=== PATIENT | male | born 1995 | race African-American/Black ===

== ENCOUNTER 2020-09-06 13:54 | Emergency (ER) | payer OTHER, SELFPAY ==
[2020-09-06 14:06] VITALS: BP 115/60; PULSE 75; RESP 14; TEMP 37; O2SAT 100
--- NOTE | 2020-09-06 14:16 | ED.NAVMDI ---
HPI - Nausea/Vomiting/Diarrhea General Chief complaint: Nausea/Vomiting/Diarrhea Stated complaint: nausea diarehha Time Seen by Provider: 09/06/20 14:16 Source: patient and RN notes reviewed Mode of arrival: ambulatory Limitations: no limitations History of Present Illness HPI Narrative: 25-year-old male who [facility] with complaints of nausea and vomiting and diarrhea for the past 3 to 4 days. Patient states he ate a hamburger and about 2 hours after eating his stomach felt real heavy with bloating and then he started with having some nausea and diarrhea which has been intermittent with periods of vomiting. He reports he did have a small loose brown stool this morning. Patient states he did have nausea and vomiting at work today and was sent home about 10:00, denies any pain to his abdomen with no tenderness noted on palpation or any incidence of fevers. Patient states no evidence of blood in emesis or any noted in his stools. MD elicited complaint: nausea, vomiting, diarrhea and other (bloating) Onset (ago): day(s) (3-4 days) Description of vomiting: food contents Description of diarrhea: watery Associated nausea: Yes Associated abdominal pain: No Location of pain: other (bloating) Quality: other (bloating) Exacerbating factors: eating Relieving factors: none Context: possible food poisoning Associated symptoms: loss of appetite, nausea/vomiting, bloating and other (diarrhea) Treatment prior to arrival: other OTC medicine (type of stomach med) Related Data Allergies Allergy/AdvReac Type Severity Reaction Status Date / Time No Known Allergies Allergy Verified 09/06/20 14:13 Review of Systems Review of Systems: Narrative: CONSTITUTIONAL: Denies fever, chills, or sweats. EYES: Denies visual changes, redness, or discharge. ENT: Denies rhinorrhea, congestion, sore throat, or otalgia. CARDIOVASCULAR: Denies chest pain, palpitations, or edema. RESPIRATORY: Denies cough or dyspnea. GASTROINTESTINAL: Denies abdominal pain, positive for nausea, vomiting, or diarrhea. GENITOURINARY: Denies dysuria or hematuria. SKIN: Denies rash or itching. MUSCULOSKELETAL: Denies back pain, joint pain, or myalgia. NEUROLOGIC: Denies headache, numbness, or weakness. PSYCHIATRIC: Positive history of anxiety or depression. All systems reviewed & are unremarkable except as noted in HPI and below PMFSH Past Medical History Medical History (Updated 09/06/20 @ 15:21 by Aretha Wren NP) Bipolar 1 disorder Migraines Social History Social History (Updated 09/06/20 @ 15:22 by Aretha Wren NP) Smoking packs per day: 0.25 Smoking cigarettes per day: 5.0 Years smoked: 10 Smoking pack-years: 2.50 Smoking status: Current every day smoker Tobacco type: e-cigarettes/vaping Substance use type: marijuana Living arrangements: with family Gender identity (if verbalized by the patient): Male Comments At time of signature, agree with nursing past medical, surgical, social and family history. There is no relevant family history pertinent to the presenting complaint Exam Narrative: Exam Narrative: GENERAL: Well-appearing, well-nourished, and in no acute distress. HEAD: Normocephalic, atraumatic. EYES: PERRLA and EOMI. ENT: Nares clear, no rhinorrhea or epistaxis. Mucous membranes moist.TM's normal with good light reflex, throat pink with no lesions or exudates, no swollen tonsils noted. NECK: Supple. No lymph adenopathy CHEST: Clear to auscultation. No respiratory distress. SaO2 100% on room air HEART: Regular rate and rhythm. No murmur heard. Normal peripheral pulses. ABDOMEN: Soft, nontender to palpation, nondistended, normal active bowel sounds. Episodes of nausea and vomiting and diarrhea with no evidence of blood in emesis or stools, negative McBurney point tenderness EXTREMITIES: Normal range of motion. No edema. SKIN: Warm, dry, no rash. NEURO: No focal deficits. Alert and oriented x3. Course Vital Signs Vital
== END 2020-09-06 14:32 | disposition home or self-care (01) ==
PROVIDERS: Emergency Provider Registered Nurse
DX: K52.9 Noninfective gastroenteritis and colitis, unspecified (principal); F17.200 Nicotine dependence, unspecified, uncomplicated
CPT/HCPCS: 99213; G0463

== ENCOUNTER 2022-08-18 09:01 | Emergency (ER) | payer OTHER, SELFPAY ==
[2022-08-18 09:14] VITALS: BP 156/88; PULSE 83; RESP 16; TEMP 36.2; O2SAT 98
--- NOTE | 2022-08-18 10:37 | ED.URI ---
HPI - URI/Sore Throat General Chief Complaint: Upper Respiratory Infection Stated Complaint: nausea diarrhea sore throat Time Seen by Provider: 08/18/22 10:37 Source: patient, RN notes reviewed and old records reviewed Mode of arrival: ambulatory Limitations: no limitations History of Present Illness HPI Narrative: 27-year-old male who presents to [facility] with complaints of sore throat, slight headache,nausea, vomiting, and diarrhea since 1 hour after eating Thanksgiving dinner. 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 He reports that he has been exposed to flu and COVID working at the facility.Patient states that he has had 4 episodes of vomiting today and 6 diarrhea stools and has not had any acute abdominal pain just some cramping with stools. He has tried to eat a few bites today and he has drank some liquids last around 0900. MD elicited complaint: nasal congestion and other (vomiting and diarrhea,headache) Pain scale (0-10): 3 Treatments prior to arrival: other (TUMS) Related Data Allergies Allergy/AdvReac Type Severity Reaction Status Date / Time No Known Allergies Allergy Verified 08/18/22 09:58 Review of Systems Review of Systems: CONSTITUTIONAL: Denies fever, chills, or sweats. ENT: Reports rhinorrhea, congestion, sore throat, no otalgia. CARDIOVASCULAR: Denies chest pain, palpitations, or edema. RESPIRATORY: Denies cough or dyspnea. GASTROINTESTINAL: Denies any acute abdominal pain, positive for nausea, vomiting, diarrhea. GENITOURINARY: Denies dysuria or hematuria. SKIN: Denies rash or itching. MUSCULOSKELETAL: Denies back pain, joint pain, or myalgia. NEUROLOGIC: Positive for headache, no numbness, or weakness. All systems reviewed & are unremarkable except as noted in HPI and below PMFSH Past Medical History Medical History (Updated 08/19/22 @ 00:00 by Evelio Gaona) Bipolar 1 disorder Migraines Social History Social History Smoking packs per day: 0.25 Smoking cigarettes per day: 5.0 Years smoked: 10 Smoking pack-years: 2.50 Smoking status: Current every day smoker Tobacco type: e-cigarettes/vaping Substance use type: marijuana Gender identity (if verbalized by the patient): Male Comments At time of signature, agree with nursing past medical, surgical, social and family history. There is no relevant family history pertinent to the presenting complaint Exam Narrative: GENERAL: Well-appearing, well-nourished, and in no acute distress. HEAD: Normocephalic, atraumatic. EYES: PERRLA, conjunctivae clear, and EOMI. ENT: Nares clear some clear nasal drainage. Mucous membranes moist. Oropharynx without edema, erythema, or lesions. Tonsils not enlarged and without exudate. NECK: Supple. No lymphadenopathy CHEST: Speaks in full sentences. No respiratory distress. HEART: Regular rate and rhythm. ABDOMEN: Soft, flat, nondistended. No guarding, rebound tenderness, or rigid. No pulsatilla masses. Bowel sounds present in all four quadrants. No organomegaly. Negative Frias?s sign. No periumbilical tenderness.negative for McBurney point tenderness, No Supra public tenderness or distension. Good femoral pulses bilaterally. No hernia noted. No scars or surface trauma. SKIN: Warm, dry, no rash. NEURO:? Alert and oriented x3. PSYCH: Normal mood and affect Course Course Emergency Course: Patient is aware of diagnosis, understands and agrees to treatment plan.? Anticipatory guidance given.? Patient agrees to follow-up as directed and is aware of reasons to seek care at the emergency department. Portions of this record may have been created with voice recognition software Level of Care: Express Care Visit Vital Signs Vital signs: Vital Signs Temperature 36.2 C L 08/18/22 09:14 Pulse Rate 83 08/18/22 09:14 Respiratory Rate 16 08/18/22 09:14 Blood Pressure 156/88 H 08/18/22 09
== END 2022-08-18 10:53 | disposition home or self-care (01) ==
PROVIDERS: Emergency Provider Registered Nurse
DX: K52.9 Noninfective gastroenteritis and colitis, unspecified (principal); Z20.822 Contact with and (suspected) exposure to COVID-19; F17.290 Nicotine dependence, other tobacco product, uncomplicated; F12.90 Cannabis use, unspecified, uncomplicated
CPT/HCPCS: 87426; 87804; 99213; C9803; G0463

== ENCOUNTER 2023-08-10 16:07 | Emergency (ER) | payer OTHER, SELFPAY ==
[2023-08-10 16:13] VITALS: BP 143/79; PULSE 79; RESP 14; TEMP 36.6; O2SAT 98
--- NOTE | 2023-08-10 16:22 | ED.NAVMDI ---
HPI - Nausea/Vomiting/Diarrhea General Chief complaint: Nausea/Vomiting/Diarrhea Stated complaint: nausea / aches Time Seen by Provider: 08/10/23 16:26 Source: patient and RN notes reviewed Mode of arrival: ambulatory Limitations: no limitations History of Present Illness HPI Narrative: 28-year-old male presents with concern for nausea, vomiting, body aches. Reports symptoms started yesterday. He vomited twice yesterday and once today. He has not vomited since this morning. He denies fever, sore throat, runny nose, stuffy nose, cough. He reports he is taking Tylenol. He denies abdominal pain MD elicited complaint: nausea and vomiting Related Data Allergies Allergy/AdvReac Type Severity Reaction Status Date / Time No Known Allergies Allergy Verified 08/10/23 16:21 Review of Systems Review of Systems: CONSTITUTIONAL: Reports malaise. Denies chills, sweats, or fever. ENT: Denies rhinorrhea, congestion, sinus pain, otalgia or sore throat. CARDIOVASCULAR: Denies chest pain, palpitations, or edema. RESPIRATORY: Denies cough or dyspnea. GASTROINTESTINAL: Denies abdominal pain, diarrhea, bloody, or mucous stools. Reports nausea vomiting GENITOURINARY: Denies dysuria or hematuria. MUSCULOSKELETAL: Reports myalgia. NEUROLOGIC: Denies headache. All systems reviewed & are unremarkable except as noted in HPI and below PMFSH Past Medical History Medical History (Updated 08/10/23 @ 16:33 by Yolanda Manning NP) Bipolar 1 disorder Migraines Social History Social History Smoking packs per day: 0.25 Smoking cigarettes per day: 5.0 Years smoked: 10 Smoking pack-years: 2.50 Smoking status: Current every day smoker Tobacco type: e-cigarettes/vaping Substance use type: marijuana Living arrangements: with family Gender identity (if verbalized by the patient): Male Comments At time of signature, agree with nursing past medical, surgical, social and family history. There is no relevant family history pertinent to the presenting complaint Exam Narrative: GENERAL: Well-appearing, well-nourished, and in no acute distress. HEAD: Normocephalic, atraumatic. EYES: PERRLA, conjunctivae clear, and EOMI. ENT: Nares clear, turbinates pink, no rhinorrhea or epistaxis. Mucous membranes moist. Oropharynx without edema, erythema, or lesions. Tonsils not enlarged and without exudate. NECK: Supple. No lymphadenopathy CHEST: Speaks in full sentences. No respiratory distress. HEART: Regular rate and rhythm. ABDOMEN: Soft, round, nondistended, nontender. No guarding, rebound tenderness, or rigidity. No pulsatile masses. Bowel sounds present in all four quadrants. SKIN: Warm, dry, no rash. NEURO: Alert and oriented x3. PSYCH: Normal mood and affect Course Course Emergency Course: Patient is aware of diagnosis, understands and agrees to treatment plan. Anticipatory guidance given. Patient agrees to follow-up as directed and is aware of reasons to seek care at the emergency department. Portions of this record may have been created with voice recognition software Level of Care: Express Care Visit Vital Signs Vital signs: Vital Signs Temperature 97.8 F 08/10/23 16:13 Pulse Rate 79 08/10/23 16:13 Respiratory Rate 14 08/10/23 16:13 Blood Pressure 143/79 H 08/10/23 16:13 Pulse Oximetry 98 08/10/23 16:13 Oxygen Delivery Room Air 08/10/23 16:13 Temperature 97.8 F 08/10/23 16:13 Pulse Rate 79 08/10/23 16:13 Respiratory Rate 14 08/10/23 16:13 Blood Pressure 143/79 H 08/10/23 16:13 Pulse Oximetry 98 08/10/23 16:13 Oxygen Delivery Room Air 08/10/23 16:13 Reviewed. MDM - Nausea/Vomiting/Diarrhea MDM Narrative Medical decision making narrative: Differential diagnosis considered: Acute abdomen, gastroenteritis, banuelos virus, strep pharyngitis, allergic rhinitis, upper respiratory tract infection, sinusitis, rhinosinu
[2023-08-10 16:23] VITALS: BP 143/79; PULSE 79; RESP 14; TEMP 36.6; O2SAT 98
== END 2023-08-10 16:38 | disposition home or self-care (01) ==
PROVIDERS: Emergency Provider Nurse Practitioner
DX: R11.2 Nausea with vomiting, unspecified (principal); F17.290 Nicotine dependence, other tobacco product, uncomplicated; F12.90 Cannabis use, unspecified, uncomplicated
CPT/HCPCS: 99213; G0463

== ENCOUNTER 2024-10-22 08:38 | Emergency (ER) | payer OTHER, SELFPAY ==
[2024-10-22 08:48] VITALS: BP 121/68; PULSE 72; RESP 20; TEMP 36.8; O2SAT 98
--- OUTSIDE RECORDS SUMMARY | 2024-10-22 09:01 | XMS_ITS | Clinical Summary ---
Author Organization [facility] Address [address] [place] [address] Phone Care Team Providers Care Customer Service Sales Associate Name Role Phone Provider, None Primary Care Provider Unavailabl e Allergies No known active allergies Medications ondansetron (ZOFRAN) 4 MG Tablet Take 1-2 Tablets by mouth every 8 hours as needed for Nausea - 1st line. 10 Tablet 1 Active Additional Information Patient not taking.Reported on 12/04/2022 omeprazole (PriLOSEC) 20 MG CAPSULE DELAYED RELEASE TAKE 1 CAPSULE BY MOUTH EVERY DAY 30 Capsule 3 Active HYDROcodone-susan taminophen (NORCO) 5-325 MG TabletIndicatio ns:Dental caries Take 1 Tablet by mouth every 4 hours as needed for Moderate or more severe pain. 5 Tablet 3 Active ibuprofen (MOTRIN) 200 MG Tablet Take 4 Tablets by mouth every 8 hours as needed for Mild or more severe pain. 120 Tablet 3 Active Active Problems No known active problems Social History Tobacco Use Types Packs/Day Years Used Date Smoking Tobacco: Every Day Cigarettes Smokeless Tobacco: Never Tobacco Cessation:Ready to Q uit: Not Asked; Counseling Given: Not Answered Alcohol Use Standard Drinks/Week Comments Yes 0 (1 standard drink = 0.6 oz pur e alcohol) Sex and Gender Information Value Date Recorded Sex Assigned at Not on file Legal Sex Male 3:52 PM CDT Gender Identity Not on file Sexual Orientation Not on file Last Filed Vital Signs Vital Sign Reading Time Taken Comments Blood Pressure 123/72 03/30/2023 2:50 AM CDT Pulse 77 03/30/2023 2:50 AM CDT Temperature 36.4 ??C (97.6 ??F) 03/30/2023 12:47 AM C DT Respiratory Rate 18 03/30/2023 2:50 AM CDT Oxygen Saturation 96% 03/30/2023 2:50 AM CDT Inhaled Oxygen Concentration - - Weight 106.6 kg (235 lb) 03/30/2023 12:47 AM CDT Height 185.4 cm (6' 1 ) 03/30/2023 12:47 AM CDT Body Mass Index 31 03/30/2023 12:47 AM CDT Plan of Treatment Health Maintenance Due Date Last Done Comments Hepatitis C Virus (HCV) Screening 1996 TdaP Immunization 1996 Hepatitis B Immunization (1 of 3 - 19+ 3-dose series) 2015 Pneumococcal Immunization Co mbined (1 of 2 - PCV) 2015 Influenza Immunization (#1) 2024 SARS-COV-2 Immunization ( - 2023- season) 2024 Respiratory Syncytial Virus (RSV) Immunization (Adult) (1 - 1-dose 75+ series) 2071 Meningococcal Immunization (ACWY) Aged Out No longer eligible based on patient's age to complete this topic Rotavirus Immunization Aged Out No lo nger eligible based on patient's age to complete this topic Insurance MEDICAID [place] Care Teams Customer Service Sales Associate Relationship Specialty Start Date End Date Provider, None [place] PCP - General 05/23/22
--- OUTSIDE RECORDS SUMMARY | 2024-10-22 09:01 | XMS_ITS | Clinical Summary ---
Author Organization [facility] Address [address] [place] [address] Care Team Providers Care Government Auditor Name Role Phone No, Physician Primary Care Provider [phone] Allergies No known active allergies Medications amoxicillin (AMOXIL) 875 mg tabletIndicatio ns:Upper Respiratory/CATHERINE NT Infection Take 1 tablet (875 mg total) by mouth 2 (two) times a day. 20 tablet 8 Active albuterol HFA (PROVENTIL HFA,VENTOLIN HFA,PROAIR HFA) 90 mcg/actuation inhaler Inhale 2 puffs every 4 (four) hours as needed for wheezing or shortness of breath 18 g 0 Active naproxen (NAPROSYN) 500 mg tablet Take 1 tablet (500 mg total) by mouth 2 (two) times a day with meals 14 tablet 0 Active ondansetron (ZOFRAN) 4 mg tablet Take 1 tablet (4 mg total) by mouth every 6 (six) hours 12 tablet 2 Active famotidine (PEPCID) 20 mg tablet Take 1 tablet (20 mg total) by mouth 2 (two) times a day 30 tablet [address] (PROTONIX) 40 mg EC tablet Take 1 tablet (40 mg total) by mouth daily 30 tablet 3 Active omeprazole (PriLOSEC) 20 mg capsule Take 1 tablet by mouth daily 3 Active Active Problems No known active problems Medical History Medical History Date Comments Gastritis Social History Tobacco Use Types Packs/Day Years Used Date Smoking Tobacco: Every Day Cigarettes Smokeless Tobacco: Never Alcohol Use Standard Drinks/Week Comments Yes 0 (1 standard drink = 0.6 oz pur e alcohol) Personal Safety Answer Date Recorded Getting School Help Needed Not on file 03/24 Sex and Gender Information Value Date Recorded Sex Assigned at Not on file 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 Gender Identity Not on file Sexual Orientation Not on file Obstetrics History Last Filed Vital Signs Vital Sign Reading Time Taken Comments Blood Pressure 119/70 03/18/2023 7:00 PM CDT Pulse 76 03/18/2023 7:00 PM CDT Temperature 37.2 ??C (98.9 ??F) 03/18/2023 12:29 PM C DT Respiratory Rate 19 03/18/2023 7:00 PM CDT Oxygen Saturation 100% 03/18/2023 7:00 PM CDT Inhaled Oxygen Concentration - - Weight 106.6 kg (235 lb) 03/18/2023 12:29 PM CDT Height 185.4 cm (6' 1 ) 01/06/2022 12:34 PM CDT Body Mass Index 31 01/06/2022 12:34 PM CDT Plan of Treatment Health Maintenance Due Date Last Done Comments Depression Screening 1996 Hepatitis C Screening 1996 Pneumococcal vaccine <65 (1 of 2 - PCV) 2002 DTaP/Tdap/Td Vaccine (1 - Tdap) 2007 Varicella Vaccines (1 of 2 - 13+ 2-dose series) 2009 Hepatitis B Screening 2014 Regular Well Visit/Exam 18-64 2014 Influenza Vaccine (#1) 2024 HPV Vaccines Aged Out No longer eligi ble based on patient's age to complete this topic Insurance [facility] [place] [address] [facility] Care Teams Government Auditor Relationship Specialty Start Date End Date No, Physician PCP - General 01/06/22
--- OUTSIDE RECORDS SUMMARY | 2024-10-22 09:01 | XMS_ITS | Referral Summary ---
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
--- NOTE | 2024-10-22 09:07 | ED_ITS ---
HPI - URI/Sore Throat General Chief Complaint: Upper Respiratory Infection Stated Complaint: diarrhea/nause/throat Time Seen by Provider: 10/22/24 09:07 History of Present Illness HPI Narrative: 29-year-old male presented for complaint of sore throat, onset yesterday. Also reports nasal congestion headache, nausea and diarrhea. Onset last night. Denies cough, shortness of breath, wheezing or lethargy. Girlfriend is positive for COVID. Related Data Home Medications ?Medication ?Instructions ?Recorded ?Confirmed ?Last Taken ?Type No Home Medications 10/22/24 10/22/24 Unknown History Allergies Allergy/AdvReac Type Severity Reaction Status Date / Time No Known Allergies Allergy Verified 10/22/24 09:05 Review of Systems Review of Systems: per [facility] Past Medical History Medical History Bipolar 1 disorder Migraines Social History Social History Smoking packs per day: 0.25 Smoking cigarettes per day: 5.0 Years smoked: 10 Smoking pack-years: 2.50 Smoking status: Current every day smoker Tobacco type: e-cigarettes/vaping Substance use type: marijuana Living arrangements: with family Gender identity (if verbalized by the patient): Male Exam Narrative: GENERAL: Mildly Ill-appearing, no acute distress. EYES: conjunctivae clear ENT: Mucous membranes moist. LeftTM pearly lopez with normal light reflex; right TM erythematous, no purulent effusion noted. no tragal tenderness. Oropharynx erythematous without lesions. Tonsils enlarged and without exudate. No drooling, no hoarseness, no trismus, uvula midline. No tripod positioning, hot potato voice, or soft palate swelling. NECK: Supple. No lymphadenopathy CHEST: Clear to auscultation, breath sounds equal. No respiratory distress, speaks in full sentences. HEART: Regular rate and rhythm. No murmur heard. SKIN: Warm, dry, no rash. NEURO: Alert and oriented x3. Course Course Emergency Course: Patient is aware of diagnosis, understands and agrees to treatment plan. Anticipatory guidance given. Patient agrees to follow-up as directed and is aware of reasons to seek care at the emergency department. Portions of this record may have been created with voice recognition software Level of Care: Express Care Visit Vital Signs Vital signs: Vital Signs Temperature 98.3 F 10/22/24 08:48 Pulse Rate 72 10/22/24 08:48 Respiratory Rate 20 10/22/24 08:48 Blood Pressure 121/68 10/22/24 08:48 Pulse Oximetry 98 10/22/24 08:48 Oxygen Delivery Room Air 10/22/24 08:48 Temperature 98.3 F 10/22/24 08:48 Pulse Rate 72 10/22/24 08:48 Respiratory Rate 20 10/22/24 08:48 Blood Pressure 121/68 10/22/24 08:48 Pulse Oximetry 98 10/22/24 08:48 Oxygen Delivery Room Air 10/22/24 08:48 MDM - URI/Sore Throat MDM Narrative Medical decision making narrative: POS strep result reviewed with pt. negative flu and COVID. Advise supportive treatments. Patient is appropriate for outpatient treatment and follow-up. Differential Diagnosis Differential diagnosis: Likely upper respiratory infection, viral infection and pharyngitis Discharge Plan Discharge Clinical Impression: Strep pharyngitis Patient Disposition: Home, Self-Care Condition: Stable Instructions: Antibiotic Form, Strep Throat (ED) Additional Instructions: - Take the antibiotic as directed. Fever and sore throat typically resolve within one to three days. Most patients can return to work, school, or daycare after 12 to 24 hours of antibiotic therapy, provided you are fever free and otherwise well. -Eat and drink things that are easy to swallow, like soft foods, cool liquids, tea with honey, or popsicles . -Salt water gargles and/or may use topical anesthetic ( Chloraseptic spray) or lozenges to relieve dryness or throat pain -Alternate Tylenol and ibuprofen as needed for pain and fever as directed. -Frequent hand washing or hand buffing and sueding machine operator is one of the best ways to prevent spread of infection. Throw away the toothbrush after 24hours of antibiotic. Stay hydrated. Take small sips of fluid containing electrolytes frequently. Clear liquids (broth, jello, tea, sprite, pedialyte) [place] foods (bananas, rice, applesauce, toast, crackers) Avoid fatty, greasy, fried or spicy foods. Limit dairy until symptoms are improved. [id number] Imodium according to package directions for diarrhea Recommend probiotic such as align or lactobacillus to help with symptoms. Follow up with primary care provider in 3 days. Go to the ER for worsening symptoms or concerns Patient Language: Georgian Prescriptions: New amoxicillin 500 mg tablet 1,000 mg PO BID 7 Days Qty: 28 0RF ondansetron 4 mg tablet,disintegrating 4 mg PO Q8H PRN (Reason: nausea and vomiting) Qty: 5 0RF No Action No Home Medications Follow-up/Referrals: Chicho Kingsley MD [Primary Care Provider] - Stand Alone Forms: Work/School Release IP Time of Disposition: 09:18
[2024-10-22 09:23] LABS: EDCOVIDSCREEN Negative (Negative); EDINFLUASCREEN Negative (Negative); EDINFLUBSCREEN Negative (Negative); EDSTREPNEGPOS1 Positive (Negative)
== END 2024-10-22 09:18 | disposition home or self-care (01) ==
PROVIDERS: Emergency Provider Nurse Practitioner Family; PCP Emergency Medicine
DX: J02.0 Streptococcal pharyngitis (principal); F31.9 Bipolar disorder, unspecified; F17.290 Nicotine dependence, other tobacco product, uncomplicated; Z20.822 Contact with and (suspected) exposure to COVID-19
CPT/HCPCS: 87426; 87804; 87880; 99213; G0463

== ENCOUNTER 2025-09-07 15:51 | Emergency (ER) | payer SELFPAY ==
[2025-09-07 16:07] VITALS: BP 150/78; PULSE 73; RESP 20; TEMP 36.6; O2SAT 99
--- NOTE | 2025-09-07 16:23 | ED.URI ---
HPI - URI/Sore Throat General Chief Complaint: Upper Respiratory Infection Stated Complaint: Sore Throat/Nausea Time Seen by Provider: 09/07/25 16:24 Source: patient, RN notes reviewed and old records reviewed Mode of arrival: ambulatory Limitations: no limitations History of Present Illness HPI Narrative: 30 year old male who presents to [facility] care with complaints of sore throat and nausea for the past 2 days Patient reports that he was sent home from work today due to illness.Patient reports that he has had sore throat and nauseafor the past 2 days Patient has been taking Tylenol for his symptoms. MD elicited complaint: sore throat and other (nausea) Onset (ago): day(s) (2) Related Data Allergies Allergy/AdvReac Type Severity Reaction Status Date / Time No Known Allergies Allergy Verified 09/07/25 16:05 Review of Systems Review of Systems: CONSTITUTIONAL: Denies malaise, chills, sweats, or fever. EYES: Denies visual changes, redness, or discharge. ENT: Reports rhinorrhea, congestion, sinus pain, otalgia and+ sore throat. CARDIOVASCULAR: Denies chest pain, palpitations, or edema. RESPIRATORY: Reports cough.? Denies dyspnea. GASTROINTESTINAL: Denies abdominal pain, nausea, vomiting, diarrhea SKIN: Denies rash or itching. MUSCULOSKELETAL: Denies myalgia. NEUROLOGIC: Denies headache. All systems reviewed & are unremarkable except as noted in HPI and below PMFSH Past Medical History Medical History Strep pharyngitis Bipolar 1 disorder Migraines Social History Social History Smoking packs per day: 0.25 Smoking cigarettes per day: 5.0 Years smoked: 10 Smoking pack-years: 2.50 Smoking status: Current every day smoker Tobacco type: e-cigarettes/vaping Substance use type: marijuana Living arrangements: with family Gender identity (if verbalized by the patient): Male Comments At time of signature, agree with nursing past medical, surgical, social and family history. There is no relevant family history pertinent to the presenting complaint Exam Narrative: GENERAL:Ill-appearing, well-nourished, and in no acute distress. HEAD: Normocephalic EYES: PERRLA, conjunctivae clear ENT: Nares clear, turbinates edematous and erythematous, clear discharge. Mucous membranes moist. TM pearly lopez with dull light reflex bilaterally; no tragal tenderness. Oropharynx erythematous without lesions. Tonsils red and enlarged and without exudate, no drooling, no hoarseness, no trismus, uvula midline, post nasal drainage noted NECK: Supple. No lymphadenopathy CHEST: Clear to auscultation, breath sounds equal. No wheezing, rhonchi, rales, or stridor. No respiratory distress, speaks in full sentences.no cough SAO2 99% on room air HEART: Regular rate and rhythm. No murmur heard. SKIN: Warm, dry, no rash. NEURO: Alert and oriented x3. PSYCH: Normal mood and affect Course Course Level of Care: Express Care Visit Vital Signs Vital signs: Vital Signs Temperature 36.6 C 09/07/25 16:07 Pulse Rate 73 09/07/25 16:07 Respiratory Rate 20 09/07/25 16:07 Blood Pressure 150/78 H 09/07/25 16:07 Pulse Oximetry 99 09/07/25 16:07 Oxygen Delivery Room Air 09/07/25 16:07 Temperature 36.6 C 09/07/25 16:07 Pulse Rate 73 09/07/25 16:07 Respiratory Rate 20 09/07/25 16:07 Blood Pressure 150/78 H 09/07/25 16:07 Pulse Oximetry 99 09/07/25 16:07 Oxygen Delivery Room Air 09/07/25 16:07 reviewed [facility] Narrative Medical decision making narrative: Patient tested positive for group A strep pharyngitis will treat with oral antibiotic and Zofran for nausea. Patient is appropriate for oupatient care with symptom control with OTC medications such as Tylenol or Ibuprofen for any pain or fevers. Anticipatory guidance with reasons to seek care in ED reviewed with patient with understanding voiced Differential Diagnosis Differential Diagnosis: Differential diagnostic considerations for upper respiratory infection include upper respiratory infection, croup, otitis media, sinusitis, viral infection, bronchitis, influenza, pharyngitis, strep, uvulitis.? Lab Data [facility] Lab Attestation statement: I personally reviewed the patient's lab results. Lab results narrative: Influenza A&B negative, COVID antigen negative, strep screen positive Labs: Lab Results 09/07/25 09/07/25 Range/Units 16:38 16:39 POC Influenza A Ag Negative (Negative) POC Influenza B Ag Negative (Negative) POC SARS CoV-2 Ag Negative (Negative) POC Grp A Strep Screen Positive (Negative) reviewed Critical Care Time Critical Care Time Critical Care Time: No Discharge Plan Discharge Clinical Impression: Acute streptococcal pharyngitis Patient Disposition: Home Condition: Stable Instructions: Antibiotic Form, Strep Throat (ED) Additional Instructions: You tested positive for Group A strep . Take the entire course of antibiotics. Throw away your current toothbrush and begin using a new toothbrush in 48 hours in order to prevent re-infection. Sanitize all reusable water bottles . Do not share items with others. Salt water gargles may alleviate some of the throat discomfort. You can take Tylenol or ibuprofen per the package instructions for pain/fever. Zofran for any nausea or vomiting If your symptoms persist, change or worsen significantly before you can contact your personal physician then please, without delay, go to the emergency department for further evaluation. Follow-up with PCP in 7-10 days or sooner if needed Follow up with PCP soon in regards to your blood pressure which is elevated above threshold for referral. Blood pressure above 120/80 may indicate pre-hypertension. 150/78 Patient Language: Portuguese Prescriptions: New amoxicillin 500 mg capsule 1,000 mg PO Q12H Qty: 40 0RF ondansetron 4 mg tablet,disintegrating 4 mg PO Q6H PRN (Reason: nausea and vomiting) Qty: 20 0RF Rx Instructions: whatever preparation is covered by insurance Follow-up/Referrals: PHYSICIAN,UTILITY LINEMAN [Primary Care Provider, Internal Medicine] Stand Alone Forms: Work/School Release IP Time of Disposition: 16:32 [place] Coma Scale Eyes: Open Verbal: Oriented and Alert Motor: Follows Commands [place]an Coma Total Score: 15
[2025-09-07 17:01] LABS: EDCOVIDSCREEN Negative (Negative); EDINFLUASCREEN Negative (Negative); EDINFLUBSCREEN Negative (Negative)
[2025-09-07 17:01] LABS: EDSTREPNEGPOS1 Positive (Negative)
--- OUTSIDE RECORDS SUMMARY | 2025-09-07 17:57 | XMS_ITS | Clinical Summary ---
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 Role Phone No, Physician Primary Care Provider [phone] Allergies No known active allergies Medications amoxicillin [...] Active Active Problems No known active problems Encounters Date Type Department Care Team Description 08/04/2025 1:50 AM SEAT INSTALLER - 08/04/2025 4:45 AM SEAT INSTALLER Emergency [facility] Emergency Department [address] [place] [address] Isaias Hooper MD Cannabis abuse, uncomplicated (Primary Dx) Discharge Disposition: Discharge to home or self care from Last 3 Months Medical History Medical History Date Comments Gastritis Social History Tobacco Use Types Packs/Day Years Used Date Smoking Tobacco: Every Day Cigarettes Smokeless Tobacco: Never Alcohol Use Standard Drinks/Week Comments Yes 0 (1 standard drink = 0.6 oz pur e alcohol) Personal Safety Answer Date Recorded Have you ever been in or are you currently in a harmful physical or emotional relationship or is someone making you feel afraid or unsafe? Denies 08/04/2025 Sex and Gender Information Value Date Recorded Sex Assigned at Not on file Legal Sex Male 1:38 PM SEAT INSTALLER Gender Identity Not on file Sexual Orientation Not on file Last Filed Vital Signs Vital Sign Reading Time Taken Comments Blood Pressure 137/73 08/04/2025 4:00 AM SEAT INSTALLER Pulse 69 08/04/2025 4:37 AM SEAT INSTALLER Temperature 37.2 C (99 F) 08/04/2025 1:48 AM SEAT INSTALLER Respiratory Rate 18 08/04/2025 1:48 AM SEAT INSTALLER Oxygen Saturation 94% 08/04/2025 4:37 AM SEAT INSTALLER Inhaled Oxygen Concentration - - Weight 133.8 kg (295 lb) 08/04/2025 1:46 AM SEAT INSTALLER Height 185.4 cm (6' 1) 08/04/2025 1:46 AM SEAT INSTALLER Body Mass Index 38.92 08/04/2025 1:46 AM SEAT INSTALLER Plan of Treatment Health Maintenance Due Date Last Done Comments Depression Screening 1996 Hepatitis C Screening 1996 DTaP/Tdap/Td Vaccine (1 - Tdap) 2007 Varicella Vaccines (1 of 2 - 13+ 2-dose series) 2008 Hepatitis B Screening 2014 Regular Well Visit/Exam 18-64 2014 Pneumococcal vaccine <65 (1 of 2 - PCV) 2015 HPV Vaccines (1 - 3-dose SCDM series) 2023 Influenza Vaccine (#1) 2025 Procedures Procedure Name Priority Date/Time Associated Diagnosis Comments EGFR STAT 08/04/2025 3:03 AM SEAT INSTALLER URINALYSIS, MICROSCOPIC ONLY STAT 08/04/2025 3:03 AM SEAT INSTALLER DIFFERENTIAL AUTO STAT 08/04/2025 3:0 3 AM SEAT INSTALLER DRUGS OF ABUSE SCREEN, URINE WITHOUT CONFIRMATION STAT 08/04/2025 3:03 AM SEAT INSTALLER CBC WITH AUTO DIFFERENTIAL STAT 08/04/2025 3:03 AM SEAT INSTALLER COMPREHENSIVE METABOLIC PANEL STAT 08/04/2025 3:03 AM SEAT INSTALLER URINALYSIS AND REFLEX TO MICROSCOPIC AND CULTURE STAT 08/04/2025 3:03 AM SEAT INSTALLER ECG 12-LEAD STAT 08/04/2025 2:51 AM SEAT INSTALLER from Last 3 Months Results * eGFR (08/04/2025 3:03 AM SEAT INSTALLER) eGFR >90 >=60 mL/min/1. 73 m2 Comment: Interpretive Data Reference Interval Normal >/= 90 mL/min/1.73m2 Mildly decreased* 60 - 89 mL/min/1.73m2 Mildly to moderately decreased 45 - 59 mL/min/1.73m2 Moderately to severely decreased 30 - 44 mL/min/1.73m2 Severely decreased 15 - 29 mL/min/1.73m2 Kidney Failure < 15 mL/min/1.73m2 *Relative to young adult level Estimated glomerular filtration rate is determined by the 2020 CKD-EPI equation recommended by the National Kidney Foundation (A Unifying Approach to GFR Estimation: Recommendations of the NKF-ASK Task Force on Reassessing the Inclusion of Race in Diagnosing Kidney Disease, JASN 202). The CKD-EPI equation should not be used for patients with unstable renal function and has not been validated in children and those over 70. Current interpretive data was last reviewed 2021. Blood 08/04/2025 3:03 AM SEAT INSTALLER 08/04/2025 3:36 AM SEAT INSTALLER Isaias Hooper MD LAB BLOOD ORDERABLES Final R esult [facility] ([place]) 1 [facility] Department [place] [address] * (ABNORMAL) Differential, auto (08/04/2025 3:03 AM SEAT INSTALLER) Neutrophil abs 6.97(H) 1.50 - 6.50 K/cumm Imm gran abs 0.08 0.00 - 0.10 K/cumm [facility] ([place]) Lymphocyte abs 1.65 0.80 - 3.30 K/cumm [facility] ([place]) Monocyte abs 0.53 0.20 - 0.80 K/cumm [facility] ([place]) Eosinophil abs 0.09 0.00 - 0.50 K/cumm [facility] ([place]) Basophil abs 0.05 0.00 - 0.10 K/cumm [facility] ([place]) Neutrophil pct 74.3 % [facility] ([place]) Comment: Interpretive Data Percent cell count reference ranges are not reported, since discordance with absolute values may lead to misinterpretation of CBC data. Current Interpretive Data was last revised on 2017. Imm gran pct 0.9 % [facility] ([place]) Comment: Interpretive Data Percent cell count reference ranges are not reported, since discordance with absolute values may lead to misinterpretation of CBC data. Current Interpretive Data was last revised on 2017. Lymphocyte pct 17.6 % [facility] ([place]) Comment: Interpretive Data Percent cell count reference ranges are not reported, since discordance with absolute values may lead to misinterpretation of CBC data. Current Interpretive Data was last revised on 2017. Monocyte pct 5.7 % [facility] ([place]) Comment: Interpretive Data Percent cell count reference ranges are not reported, since discordance with absolute values may lead to misinterpretation of CBC data. Current Interpretive Data was last revised on 2017. Eosinophil pct 1.0 % [facility] ([place]) Comment: Interpretive Data Percent cell count reference ranges are not reported, since discordance with absolute values may lead to misinterpretation of CBC data. Current Interpretive Data was last revised on 2017. Basophil pct 0.5 % [facility] ([place]) Comment: Interpretive Data Percent cell count reference ranges are not reported, since discordance with absolute values may lead to misinterpretation of CBC data. Current Interpretive Data was last revised on 2017. Blood 08/04/2025 3:03 AM SEAT INSTALLER 08/04/2025 3:36 AM SEAT INSTALLER Isaias Hooper MD LAB BLOOD ORDERABLES Final R esult [facility] ([place]) 1 [facility] Department [place] [address] * (ABNORMAL) Urinalysis reflex to microscopic and culture Urine (08/04/2025 3:03 AM SEAT INSTALLER) Color, ur Yellow Yellow Clarity, ur Clear Clear [facility] ([place]) Specific gravity, ur 1.028 1.003 - 1.030 [facility] ([place]) pH, urine 5.5 [facility] ([place]) Comment: Interpretive Data U rine pH is affected by diet, medications, systemic acid-base disturbances, and renal tubular function. pH may affect urinary stone formation. For example, urine pH below 6.0 may help reduce the tendency for calcium phosphate stones and pH greater than 6.0 may reduce the tendency for uric acid stone formation. Source: [facility] [email or web address] Current Interpretive Data was last revised on 2017 Protein, ur ql 1+(A) Negative [facility] ([place]) Glucose, ur ql Negative Negative [facility] ([place]) Ketones, ur Negative Negative [facility] ([place]) Bilirubin, ur Negative Negative [facility] ([place]) Blood, ur 1+(A) Negative [facility] ([place]) Urobilinogen, ur <2.0 <2.0 mg/dL [facility] ([place]) Nitrite, ur Negative Negative [facility] ([place]) Leukocyte esterase, ur Negative Negative [facility] ([place]) UA reflex comment Reflex to microscopic UA will be performed. [facility] ([place]) Urine 08/04/2025 3:03 AM SEAT INSTALLER 08/04/2025 3:36 AM SEAT INSTALLER Isaias Hooper MD LAB MICROBIOLOGY - GENERAL O RDERABLES Final Result [facility] ([place]) 1 [facility] Department [place] [address] * CBC with auto differential (08/04/2025 3:03 AM SEAT INSTALLER) WBC 9.37 3.80 - 9.90 K/cumm Hgb 13.0 13.0 - 17.5 g/dL [facility] ([place]) Hct 40.1 38.9 - 50.3 % [facility] ([place]) Plt 349 150 - 400 K/cumm [facility] ([place]) MPV 9.4 9.1 - 12.3 fL [facility] ([place]) RBC 4.80 4.30 - 5.80 M/cumm [facility] ([place]) MCV 83.5 81.3 - 96.4 fL [facility] ([place]) MCH 27.1 27.1 - 33.3 pg [facility] ([place]) MCHC 32.4 32.3 - 35.7 g/dL [facility] ([place]) RDW CV 12.2 11.1 - 14.9 % [facility] ([place]) RDW SD 37.1 35.7 - 48.1 fL [facility] ([place]) NRBC abs 0.00 0.00 - 0.01 K/cumm [facility] ([place]) Blood 08/04/2025 3:03 AM SEAT INSTALLER 08/04/2025 3:36 AM SEAT INSTALLER Isaias Hooper MD LAB BLOOD ORDERABLES Final R esult [facility] ([place]) 1 [facility] Department [place] [address] * (ABNORMAL) Drugs of Abuse Screen, Urine without Confirmation (08/04/2025 3:03 AM SEAT INSTALLER) Pathologist [facility] Amphetamine, ur Not Detected CutOff 500ng/mL Comment: Interpretive Data - Amphetamines: Samples containing greater than 500 ng/mL d-methamphetamine or other cross-reacting amphetamine compounds are reported as positive. Amphetamine immunoassays are subject to significant false positive rates due to cross-reactivity of non-amphetamine drugs. Confirmatory testing required for definitive results. Current Interpretive Data was last reviewed 2023. Barbiturates, ur Not Detected CutOff 200ng/mL [facility] ([place]) Comment: Interpretive Data - Barbiturates: Samples containing greater than 200 ng/mL secobarbital or other cross-reacting barbiturate compounds are reported as positive. False positive and false negative results are possible. Confirmatory testing required for definitive results. Current Interpretive Data was last reviewed 2023. Benzodiazepines, ur Not Detected CutOff 100ng/mL [facility] ([place]) Comment: Interpretive Data - Benzodiazepines: Samples containing greater than 100 ng/mL nordiazepam or other cross-reacting compounds are reported as positive. False positive and false negative results are possible. Confirmatory testing required for definitive results. Current Interpretive Data was last reviewed 2023. Cannabinoids, ur Screen Positive, presumptive (A) CutOff 50 ng/mL [facility] ([place]) Comment: Interpretive Data - Cannabinoids: Samples containing greater than 50 ng/mL delta-9 THC -COOH or other cross- reacting compounds are reported as positive. False positive and false negative results are possible. Confirmatory testing required for definitive results. Current Interpretive Data was last reviewed 2023. Cocaine, ur Not Detected CutOff 150ng/mL [facility] ([place]) Comment: Interpretive Data - Cocaine: Samples containing greater than 150 ng/mL benzoylecgonine or other cross- reacting compounds are reported as positive. False positive and false negative results are possible. Confirmatory testing required for definitive results. Current Interpretive Data was last reviewed 2023. Fentanyl, Ur Not Detected CutOff 5 ng/mL [facility] ([place]) Comment: Interpretive Data - Fentanyl: Samples containing greater than 5 ng/mL norfentanyl, fentanyl, or other cross-reacting fentanyl compounds are reported as positive. False positive and false negative results are possible. Confirmatory testing required for definitive results. Current Interpretive Data was last reviewed 2023. Methadone, ur Not Detected CutOff 300ng/mL [facility] ([place]) Comment: Interpretive Data - Methadone: Samples containing greater than 300 ng/mL d,l-methadone or other cross-reacting compounds are reported as positive. False positive and false negative results are possible. Confirmatory testing required for definitive results. Current Interpretive Data was last reviewed 2023. Opiates, ur Not Detected CutOff 300ng/mL [facility] ([place]) Comment: Interpretive Data - Opiates: Samples containing greater than 300 ng/mL morphine or other cross-reacting compounds are reported as positive. False positive and false negative results are possible. Confirmatory testing required for definitive results. Current Interpretive Data was last reviewed 2023. Oxycodone, ur NOT DETECTED CutOff 100ng/mL [facility] ([place]) Comment: Interpretive Data - Oxycodone: Samples containing greater than 100 ng/mL oxycodone or other cross-reacting compounds are reported as positive. False positive and false negative results are possible. Confirmatory testing required for definitive results. Current Interpretive Data was last reviewed 2023. Phencyclidine, ur Not Detected CutOff 25 ng/mL [facility] ([place]) Comment: Interpretive Data - Phencyclidine: Samples containing greater than 25 ng/mL phencyclidine or other cross-reacting compounds are reported as positive. False positive and false negative results are possible. Confirmatory testing required for definitive results. Current Interpretive Data was last reviewed 2023. Urine Creatinine 214 mg/dL [facility] ([place]) Comment: Interpretive Data Urine Creatinine: < 10 mg/dL is extremely dilute = or > 10 but < 20 mg/dL is dilute = or > 20 mg/dL is normal Current Interpretive Data was last revised on 2017. Urine 08/04/2025 3:03 AM SEAT INSTALLER 08/04/2025 3:36 AM SEAT INSTALLER Narrative [facility] ([place]) - 08/04/2025 3:56 AM SEAT INSTALLER Drug of Abuse screening is performed by immunoassay for medical purposes only. This is not to be used for Pain Management purposes. Isaias Hooper MD LAB URINE ORDERABLES Final R esult [facility] ([place]) 1 [facility] Department [place] [address] * (ABNORMAL) Urinalysis, microscopic only (08/04/2025 3:03 AM SEAT INSTALLER) Pathologist [facility] WBC, ur 0-5 0 - 5 /HPF RBC, ur 6-10(A) 0 - 2 /HPF [facility] ([place]) Epithelial cells, squamous, ur 1-5 0 - 5 /HPF [facility] ([place]) Mucous, ur Present(A) [facility] ([place]) Hyaline casts, ur 1-5 0 - 10 /LPF [facility] ([place]) Culture Reflex Comment Reflex conditions for urine culture (WBC >10) not met. [facility] ([place]) Urine 08/04/2025 3:03 AM SEAT INSTALLER 08/04/2025 3:36 AM SEAT INSTALLER Isaias Hooper MD LAB URINE ORDERABLES Final R esult [facility] ([place]) 1 [facility] Department [place] [address] * Comprehensive metabolic panel (08/04/2025 3:03 AM SEAT INSTALLER) Pathologist [facility] Sodium 135 135 - 145 mmol/L Potassium, pl 4.1 3.3 - 4.9 mmol/L [facility] ([place]) Chloride 100 97 - 110 mmol/L [facility] ([place]) CO2 25 22 - 32 mmol/L [facility] ([place]) Anion gap 10 2 - 15 mmol/L [facility] ([place]) BUN 12 6 - 25 mg/dL [facility] ([place]) Creatinine 0.82 0.80 - 1.30 mg/dL [facility] ([place]) Glucose 162 70 - 199 mg/dL [facility] ([place]) Comment: Interpretive Data Fasting glucose >/= 126 mg/dl is diagnostic for diabetes. Fasting is defined as no caloric intake for at least 8 hours. Fasting glucose between 100 mg/dl to 125 mg/dl is diagnostic of prediabetes. In a patient with classic symptoms of hyperglycemia or hyperglycemic crisis, a random glucose >/= 200 mg/dl is diagnostic for diabetes. In the absence of unequivocal hyperglycemia, results should be confirmed by repeat testing. The classification and Diagnosis of Diabetes Diabetes Care 2021; 46: S19-S40. Current interpretive data was last revised 2022. Calcium 9.8 8.5 - 10.3 mg/dL [facility] ([place]) Bilirubin, total 0.3 0.1 - 1.2 mg/dL [facility] ([place]) Protein, pl 7.6 6.5 - 8.5 g/dL [facility] ([place]) Albumin 4.4 3.5 - 5.0 g/dL [facility] ([place]) Alk phos 64 40 - 130 Units/L [facility] ([place]) ALT 45 7 - 55 Units/L [facility] ([place]) AST 31 10 - 50 Units/L [facility] ([place]) Blood 08/04/2025 3:03 AM SEAT INSTALLER 08/04/2025 3:36 AM SEAT INSTALLER Isaias Hooper MD LAB BLOOD ORDERABLES Final R esult Performing Organization Address City/[facility] Co de Phone Number [facility] ([place]) 1 [facility] [place] [address] * ECG 12 lead (08/04/2025 2:51 AM SEAT INSTALLER) 08/04/2025 2:51 AM SEAT INSTALLER Narrative [facility] - 08/04/2025 11:21 AM SEAT INSTALLER Vent Rate: 80 bpm RR Interval: 742 msec [place] Interval: 165 msec QRS Duration: 92 msec QT Interval: 350 msec QTC Interval: 386 msec P-R-T [place]: 247 - -50 - 264 degrees IMPRESSION: ECTOPIC ATRIAL RHYTHM LEFT VENTRICULAR HYPERTROPHY AND ST-T CHANGE [VOLTAGE CRITERIA PLUS ST/T ABNORMALITY] INFERIOR MYOCARDIAL INFARCTION , OF INDETERMINATE AGE [40+ ms Q WAVE AND/OR ST/T ABNORMALITY IN II/aVF] ABNORMAL ECG Electronically Signed By: Johnathan Crespo MD Isaias Hooper MD ECG ORDERABLES Final Result Performing Organization Address [facility]/ZIP Co de Phone Number [facility] from Last 3 Months Insurance [facility] MEDICAID [facility] Care Teams [employer] 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
--- OUTSIDE RECORDS SUMMARY | 2025-09-07 17:57 | XMS_ITS | Clinical Summary ---
Author Organization [facility] Address [address] [place] [address] Phone Care Team Providers Care Gas Line Installer Name Role Phone Provider, None Primary Care [...] 77 03/30/2023 2:50 AM CDT Temperature 36.4 C (97.6 F) 03/30/2023 12:47 AM CDT Respiratory Rate 18 03/30/2023 2:50 AM CDT Oxygen Saturation 96% 03/30/2023 2:50 AM CDT Inhaled Oxygen Concentration - - Weight 106.6 kg (235 lb) 03/30/2023 12:47 AM CDT Height 185.4 cm (6' 1) 03/30/2023 12:47 AM CDT Body Mass Index 31 03/30/2023 12:47 AM CDT Plan of Treatment Health Maintenance Due Date Last Done Comments Hepatitis C Virus (HCV) Screening 1996 TdaP Immunization 1996 Varicella Immunization (1 of 2 - 13+ 2-dose series) 2009 Hepatitis B Immunization (1 of 3 - 19+ 3-dose series) 2015 Influenza Immunization (#1) 2025 SARS-COV-2 Immunization ( - 2024- season) 2025 Respiratory Syncytial Virus (RSV) Immunization (Adult) (1 - 1-dose 75+ series) 2071 Human Papillomavirus (HPV) Immunization (No Doses Required) Completed Meningococcal Immunization (ACWY) Aged Out No longer eligible based on patient's age to complete this topic Pneumococcal Immunization Combined Aged Out No longer eligible based on patient's age to complete this topic Rotavirus Immunization Aged Out No lo nger eligible based on patient's age to complete this topic Insurance MEDICAID [place] Member Subscriber Plan / Payer (Ef fective 2020-Present) Name:Rogelio Morrow III Relation to Subscriber:Self Name:Rogelio Morrow III Payer ID:[id number] (NAIC) Group ID:Not on file Type:Not on file Address: [place] [id number] Care Teams Gas Line Installer Relationship Specialty Start Date End Date Provider, None [place] PCP - General 05/23/22
== END 2025-09-07 16:43 | disposition home or self-care (01) ==
PROVIDERS: Emergency Provider Registered Nurse
DX: J02.0 Streptococcal pharyngitis (principal); Z20.822 Contact with and (suspected) exposure to COVID-19; F17.210 Nicotine dependence, cigarettes, uncomplicated; F17.290 Nicotine dependence, other tobacco product, uncomplicated; F12.90 Cannabis use, unspecified, uncomplicated
CPT/HCPCS: 87426; 87804; 87880; 99213; G0463